=== PATIENT | male | born 1965 | race Two or more races ===

== ENCOUNTER 2018-07-07 16:43 | Emergency (ER) | payer MEDICAID, OTHER ==
[~2018-07-07] VITALS: Ht 160 cm; Wt 68.0 kg
[2018-07-07 16:50] VITALS: BP 174/72
[2018-07-07] MEDS ORDERED: methylPREDNISolone SOD SUCC 125 MG/2 ML VL IM ONE (19:15)
[2018-07-07] MEDS ORDERED: EPINEPHrine HCL 0.5 ML NEB NEB ONE (19:15)
[2018-07-07] MEDS ORDERED: cefTRIAXone SOD 1,000 MG VL IM ONE (19:15)
== END 2018-07-07 19:55 | disposition home or self-care (01) ==
LOC: ER 16:43
DX: J45.909 Unspecified asthma, uncomplicated (principal)
CPT/HCPCS: 94640; 96372; 99283; J0696; J2930

== ENCOUNTER 2018-12-04 16:34 | Emergency (ER) | payer OTHER ==
[~2018-12-04] VITALS: Ht 160 cm; Wt 63.5 kg
[~2018-12-04 16:34] MED LIST: ATO40T PO; CLOP75TA28 PO; LISI-275 PO; NITR0.4S29 SL
[2018-12-04 17:14] LABS: Basophils # (auto) 0.1 uL; Basophils % (auto) 0.7 % (0.0-2.0); Eosinophils # (auto) 0.3 uL; Eosinophils % (auto) 3.7 % (0.0-7.0); Hematocrit 44.3 % (41.0-53.0); Hemoglobin 14.5 g/dL (13.5-17.5); Lymphocytes # (auto) 2.3 uL; Lymphocytes % (auto) 32.6 % (10.0-50.0); Mean Corpuscular Hemoglobin 28.6 pg (28.0-32.0); Mean Corpuscular Hgb Conc. 32.7 g/dL (32.0-36.0); Mean Corpuscular Volume 87.6 fL (80.0-100.0); Monocytes # (auto) 0.6 uL; Monocytes % (auto) 8.5 % (0.0-12.0); Neutrophils # (auto) 3.9 uL; Neutrophils % (auto) 54.5 % (37.0-80.0); Nucleated Red Blood Cells % 0.2 %; Platelet Count (auto) 250 10^3/uL (140-450); Red Blood Cells 5.06 10^6/uL (4.5-5.90); Red Cell Distribution Width 13.7 % (11.8-14.3); White Blood Cell 7.1 10^3/uL (4.4-10.8)
[2018-12-04 17:22] LABS: Urine WBC None Seen /hpf (0 - 3)
[2018-12-04 17:26] LABS: Anion Gap 9 (5-15); BUN/Creatinine Ratio 10.8; Blood Urea Nitrogen 10 mg/dL (7-18); Calcium 8.9 mg/dL (8.5-10.1); Carbon Dioxide 22 mmol/L (21-32); Chloride 107 mmol/L (98-107); GFR African American 109 mL/min; GFR Non-African American 90 mL/min; Glucose 89 mg/dL (74-106); Magnesium 2.6 mg/dL (1.6-2.6); Potassium 3.5 mmol/L (3.5-5.1); Sodium 138 mmol/L (136-145)
[2018-12-04 17:31] LABS: Alanine Aminotransferase 28 U/L (16-61); Alkaline Phosphatase 84 U/L (45-117); Aspartate Aminotransferase 12 U/L (15-37); Bilirubin, Total 1.2 mg/dL (0.2-1.0); Total Protein 7.4 g/dL (6.4-8.2)
[2018-12-04 17:55] LABS: Urine Bacteria NONE SEEN /hpf (None Seen); Urine Blood Negative /uL (Negative); Urine Specific Gravity 1.005 (1.001-1.035)
[2018-12-04 19:06] LABS: Alcohol, Urine < 3.0 mg/dL (0-5); Barbiturate Scree,Urine NEGATIVE (NEGATIVE); Benzodiazephine Screen, Urine NEGATIVE (NEGATIVE); Cannabinoid Screen, Urine POSITIVE (NEGATIVE); Cocaine Screen, Urine NEGATIVE (NEGATIVE); Opiate Scree,Urine NEGATIVE (NEGATIVE); Phencyclidine Screen, Urine NEGATIVE (NEGATIVE)
[2018-12-04 19:13] LABS: Amphetamine Screen, Urine NEGATIVE (NEGATIVE)
[2018-12-04 21:09] LABS: Amylase 51 U/L (25-115); Lipase 113 U/L (73-393)
[2018-12-04] MEDS ORDERED: DIPHENOXYLATE W/ATROPINE 2.5 MG TAB PO ONE (21:30)
[2018-12-04 21:49] VITALS: BP 116/82
== END 2018-12-04 21:44 | disposition home or self-care (01) ==
LOC: ER 16:34
DX: K52.9 Noninfective gastroenteritis and colitis, unspecified (principal); K90.9 Intestinal malabsorption, unspecified; I10 Essential (primary) hypertension; E78.5 Hyperlipidemia, unspecified; J45.909 Unspecified asthma, uncomplicated; F12.10 Cannabis abuse, uncomplicated; Z86.73 Personal history of transient ischemic attack (TIA), and cerebral infarction without residual deficits; Z98.61 Coronary angioplasty status
CPT/HCPCS: 36415; 70450; 71045; 80053; 80307; 80320; 81001; 82150; 83690; 83735; 84484; 85025; 93005; 94761

== ENCOUNTER 2019-03-02 07:01 | Emergency (ER) | payer OTHER ==
[~2019-03-02] VITALS: Ht 160 cm; Wt 63.5 kg
[2019-03-02 07:23] VITALS: BP 130/87
[2019-03-02] MEDS ORDERED: cefTRIAXone SOD 1,000 MG VL IM ONE (09:15)
== END 2019-03-02 09:45 | disposition home or self-care (01) ==
LOC: EDBD 07:01 → ER 07:01
DX: J03.90 Acute tonsillitis, unspecified (principal); J06.9 Acute upper respiratory infection, unspecified; J45.909 Unspecified asthma, uncomplicated; K21.9 Gastro-esophageal reflux disease without esophagitis; E78.5 Hyperlipidemia, unspecified; I10 Essential (primary) hypertension; F12.10 Cannabis abuse, uncomplicated; Z98.61 Coronary angioplasty status; Z91.013 Allergy to seafood
CPT/HCPCS: 71046; 93005; 96372; 99283; J0696

== ENCOUNTER 2020-08-12 07:16 | Emergency (ER) | payer MEDICAID ==
[~2020-08-12] VITALS: Ht 160 cm; Wt 65.8 kg
[2020-08-12 08:18] LABS: Basophils # (auto) 0.1 10 ^3/uL (0-0.2); Basophils % (auto) 0.8 % (0.0-2.0); Eosinophils # (auto) 0.2 10 ^3/uL (0-0.8); Hematocrit 40.1 % (41.0-53.0); Hemoglobin 13.3 g/dL (13.5-17.5); Lymphocytes # (auto) 1.4 10 ^3/uL (0.4-5.4); Lymphocytes % (auto) 20.9 % (10.0-50.0); Mean Corpuscular Hemoglobin 29.2 pg (28.0-32.0); Mean Corpuscular Hgb Conc. 33.2 g/dL (32.0-36.0); Mean Corpuscular Volume 87.8 fL (80.0-100.0); Monocytes # (auto) 0.6 10 ^3/uL (0-1.3); Monocytes % (auto) 8.9 % (0.0-12.0); Neutrophils # (auto) 4.5 10 ^3/uL (1.6-8.6); Neutrophils % (auto) 66.4 % (37.0-80.0); Nucleated Red Blood Cells % 0.1 %; Platelet Count (auto) 204 10^3/uL (140-450); Red Blood Cells 4.57 10^6/uL (4.5-5.90); Red Cell Distribution Width 13.4 % (11.8-14.3); White Blood Cell 6.7 10^3/uL (4.4-10.8)
[2020-08-12 08:30] LABS: INR 1.08 (0.9-1.15); Partial Thromboplastin Time 25.5 sec (23.0-31.2)
[2020-08-12 08:35] LABS: Alanine Aminotransferase 22 U/L (16-61); Albumin 3.5 g/dL (3.4-5.0); Anion Gap 4 (5-15); Aspartate Aminotransferase 12 U/L (15-37); BUN/Creatinine Ratio 9.1; Blood Urea Nitrogen 8 mg/dL (7-18); Calcium 8.3 mg/dL (8.5-10.1); Carbon Dioxide 25 mmol/L (21-32); Chloride 112 mmol/L (98-107); GFR African American 116 mL/min; GFR Non-African American 96 mL/min; Glucose 92 mg/dL (74-106); Magnesium 2.3 mg/dL (1.6-2.6); Potassium 4.1 mmol/L (3.5-5.1); Sodium 141 mmol/L (136-145)
[2020-08-12 08:39] LABS: Alkaline Phosphatase 83 U/L (45-117); Bilirubin, Total 0.5 mg/dL (0.2-1.0); Total Protein 6.9 g/dL (6.4-8.2)
[2020-08-12 09:26] VITALS: BP 152/86
== END 2020-08-12 10:07 | disposition home or self-care (01) ==
LOC: EDBD 07:16 → ER 07:16
DX: R07.89 Other chest pain (principal); F41.9 Anxiety disorder, unspecified; K21.9 Gastro-esophageal reflux disease without esophagitis; E78.5 Hyperlipidemia, unspecified; I10 Essential (primary) hypertension; Z79.899 Other long term (current) drug therapy; Z20.822 Contact with and (suspected) exposure to COVID-19
CPT/HCPCS: 36415; 71045; 80053; 83735; 84484; 85025; 85610; 85730; 87426; 93005; 99285; C9803; U0003

== ENCOUNTER 2020-10-13 12:07 | Emergency (ER) | payer MEDICAID ==
[~2020-10-13] VITALS: Ht 160 cm; Wt 63.5 kg
[2020-10-13] MEDS ORDERED: ONDANSETRON HCL 4 MG/2 ML VIAL IV ONE (12:15)
[2020-10-13] MEDS ORDERED: PANTOPRAZOLE 40 MG/10 ML VIAL INJ IV ONE (12:15)
[2020-10-13] MEDS ORDERED: SODIUM CHLORIDE 0.9% 1,000 ML IV ONE (12:15)
[2020-10-13 12:44] LABS: Basophils # (auto) 0.1 10 ^3/uL (0-0.2); Basophils % (auto) 0.7 % (0.0-2.0); Eosinophils # (auto) 0.2 10 ^3/uL (0-0.8); Eosinophils % (auto) 2.8 % (0.0-7.0); Hematocrit 42.1 % (41.0-53.0); Hemoglobin 13.9 g/dL (13.5-17.5); Lymphocytes # (auto) 1.9 10 ^3/uL (0.4-5.4); Lymphocytes % (auto) 25.2 % (10.0-50.0); Mean Corpuscular Hemoglobin 29.4 pg (28.0-32.0); Mean Corpuscular Hgb Conc. 33.1 g/dL (32.0-36.0); Mean Corpuscular Volume 88.8 fL (80.0-100.0); Monocytes # (auto) 0.5 10 ^3/uL (0-1.3); Monocytes % (auto) 7.2 % (0.0-12.0); Neutrophils # (auto) 4.8 10 ^3/uL (1.6-8.6); Neutrophils % (auto) 64.1 % (37.0-80.0); Nucleated Red Blood Cells % 0.1 %; Platelet Count (auto) 234 10^3/uL (140-450); Red Blood Cells 4.74 10^6/uL (4.5-5.90); White Blood Cell 7.5 10^3/uL (4.4-10.8)
[2020-10-13 12:52] VITALS: BP 145/75
[2020-10-13 12:59] LABS: Albumin 4.1 g/dL (3.4-5.0); Anion Gap 5 (5-15); Blood Urea Nitrogen 6 mg/dL (7-18); Calcium 8.8 mg/dL (8.5-10.1); Carbon Dioxide 26 mmol/L (21-32); Chloride 110 mmol/L (98-107); Glucose 99 mg/dL (74-106); Potassium 3.9 mmol/L (3.5-5.1); Sodium 141 mmol/L (136-145)
[2020-10-13 13:06] LABS: Alanine Aminotransferase 25 U/L (16-61); Alkaline Phosphatase 84 U/L (45-117); Aspartate Aminotransferase 17 U/L (15-37); BUN/Creatinine Ratio 7.1; Bilirubin, Total 0.7 mg/dL (0.2-1.0); GFR African American 120 mL/min; GFR Non-African American 99 mL/min; Total Protein 7.9 g/dL (6.4-8.2)
== END 2020-10-13 13:36 | disposition home or self-care (01) ==
LOC: ER 12:07
DX: R07.89 Other chest pain (principal); E78.5 Hyperlipidemia, unspecified; K21.9 Gastro-esophageal reflux disease without esophagitis; J45.909 Unspecified asthma, uncomplicated; I25.10 Atherosclerotic heart disease of native coronary artery without angina pectoris; Z98.890 Other specified postprocedural states; Z91.012 Allergy to eggs; Z79.899 Other long term (current) drug therapy
CPT/HCPCS: 36415; 71046; 80053; 84484; 85025; 93005; 96361; 96374; 96375; 99285; C9113; J2405

== ENCOUNTER 2020-12-02 14:45 | Emergency (ER) | payer MEDICAID ==
[~2020-12-02] VITALS: Ht 162.6 cm; Wt 63.5 kg
[2020-12-02 17:05] LABS: Urine Bacteria NONE SEEN /hpf (None Seen); Urine Blood Negative /uL (Negative); Urine Mucus FEW (None Seen); Urine Specific Gravity 1.023 (1.001-1.035); Urine WBC 1 /hpf (0 - 3)
[2020-12-02 18:43] VITALS: BP 148/84
== END 2020-12-02 18:46 | disposition home or self-care (01) ==
LOC: ER 14:45
DX: S09.90XA Unspecified injury of head, initial encounter (principal); R10.9 Unspecified abdominal pain; R42 Dizziness and giddiness; J45.909 Unspecified asthma, uncomplicated; I25.10 Atherosclerotic heart disease of native coronary artery without angina pectoris; K21.9 Gastro-esophageal reflux disease without esophagitis; E78.5 Hyperlipidemia, unspecified; Z79.01 Long term (current) use of anticoagulants; Z79.899 Other long term (current) drug therapy; Z91.013 Allergy to seafood; W22.8XXA Striking against or struck by other objects, initial encounter; Y93.89 Activity, other specified; Y92.89 Other specified places as the place of occurrence of the external cause; Y99.8 Other external cause status
CPT/HCPCS: 70450; 81001; 93005

== ENCOUNTER 2021-09-27 14:36 | Emergency (ER) | payer MEDICAID ==
[~2021-09-27] VITALS: Ht 160 cm; Wt 61.2 kg
[2021-09-27 14:36] VITALS: BP 129/87
== END 2021-09-27 19:55 | disposition left against medical advice (07) ==
LOC: ER 14:36
DX: J02.9 Acute pharyngitis, unspecified (principal); R07.0 Pain in throat; I25.10 Atherosclerotic heart disease of native coronary artery without angina pectoris; K21.9 Gastro-esophageal reflux disease without esophagitis; E78.5 Hyperlipidemia, unspecified; J45.909 Unspecified asthma, uncomplicated; Z79.01 Long term (current) use of anticoagulants; Z79.899 Other long term (current) drug therapy; Z91.013 Allergy to seafood

== ENCOUNTER 2022-03-20 19:37 | Emergency (ER) | payer MEDICAID ==
[~2022-03-20] VITALS: Ht 157.5 cm; Wt 70.0 kg
[2022-03-20] MEDS ORDERED: NITROGLYCERIN 2% OINT 1GM PKG TD ONE (20:00)
[2022-03-20 20:10] LABS: Basophils # (auto) 0.1 10 ^3/uL (0-0.2); Eosinophils # (auto) 0.4 10 ^3/uL (0-0.8); Eosinophils % (auto) 6.5 % (0.0-7.0); Hematocrit 40.8 % (41.0-53.0); Hemoglobin 13.2 g/dL (13.5-17.5); Lymphocytes # (auto) 1.8 10 ^3/uL (0.4-5.4); Lymphocytes % (auto) 28.6 % (10.0-50.0); Mean Corpuscular Hemoglobin 29.1 pg (28.0-32.0); Mean Corpuscular Hgb Conc. 32.4 g/dL (32.0-36.0); Mean Corpuscular Volume 89.8 fL (80.0-100.0); Monocytes # (auto) 0.7 10 ^3/uL (0-1.3); Neutrophils # (auto) 3.4 10 ^3/uL (1.6-8.6); Neutrophils % (auto) 52.9 % (37.0-80.0); Nucleated Red Blood Cells % 0.1 %; Red Blood Cells 4.54 10^6/uL (4.5-5.90); Red Cell Distribution Width 13.7 % (11.8-14.3); White Blood Cell 6.3 10^3/uL (4.4-10.8)
[2022-03-20 20:27] LABS: Albumin 3.7 g/dL (3.4-5.0); Calcium 8.3 mg/dL (8.5-10.1); Potassium 4.2 mmol/L (3.5-5.1)
[2022-03-20 20:36] LABS: Bilirubin, Total 0.3 mg/dL (0.2-1.0); Total Protein 6.9 g/dL (6.4-8.2)
[2022-03-20 20:59] LABS: Urine Bacteria NONE SEEN /hpf (None Seen); Urine Blood Negative /uL (Negative); Urine Specific Gravity 1.002 (1.001-1.035); Urine WBC <1 /hpf (0 - 3)
[2022-03-20] MEDS: ALBUTEROL SULF 2.5 MG/0.5ML(0.5%) NEB SOLN NEB PRN (21:45)
[2022-03-21 03:00] VITALS: BP 128/78
[2022-03-21] MEDS: ALBUTEROL SULF 2.5 MG/0.5ML(0.5%) NEB SOLN NEB PRN (03:15)
== END 2022-03-21 03:37 | disposition home or self-care (01) ==
LOC: ER 19:37 → EDBD 19:37 → ER 03-21 03:37
DX: R07.89 Other chest pain (principal); J45.909 Unspecified asthma, uncomplicated; K21.9 Gastro-esophageal reflux disease without esophagitis; E78.5 Hyperlipidemia, unspecified; F12.10 Cannabis abuse, uncomplicated
CPT/HCPCS: 36415; 71045; 80053; 81001; 83880; 84484; 85025; 93005; 94640

== ENCOUNTER 2022-06-29 17:46 | Emergency (ER) | payer MEDICAID ==
[~2022-06-29] VITALS: Ht 160 cm; Wt 59.0 kg
[2022-06-29 18:00] VITALS: BP 138/79
== END 2022-06-30 00:02 | disposition home or self-care (01) ==
LOC: ER 17:46
DX: S16.1XXA Strain of muscle, fascia and tendon at neck level, initial encounter (principal); S29.012A Strain of muscle and tendon of back wall of thorax, initial encounter; I25.10 Atherosclerotic heart disease of native coronary artery without angina pectoris; J45.909 Unspecified asthma, uncomplicated; K21.9 Gastro-esophageal reflux disease without esophagitis; E78.5 Hyperlipidemia, unspecified; Z79.01 Long term (current) use of anticoagulants; Z79.899 Other long term (current) drug therapy; Z91.013 Allergy to seafood; Y04.2XXA Assault by strike against or bumped into by another person, initial encounter; Y93.89 Activity, other specified; Y92.89 Other specified places as the place of occurrence of the external cause; Y99.8 Other external cause status

== ENCOUNTER 2024-07-23 12:14 | Emergency (ER) | payer MEDICAID ==
[~2024-07-23] VITALS: Ht 160 cm; Wt 66.7 kg
[~2024-07-23 12:14] MED LIST changes: -ATO40T PO; +ATOR-507 PO
--- NOTE | 2024-07-23 17:24 | DVH ---
Exam: US SOFT TISSUE NECK Clinical History: Mass Comparison: None Technique: Targeted sonographic evaluation of the soft tissues of the was obtained utilizing grayscale and col or Doppler imaging. Findings/Impression: There is a 2.8 x 1.2 x 2.5 cm hypoechoic structure seen in the area of the interest in the right temp oral region which is solid IMPRESSION: 1. Solid mass in the area of interest. Further evaluation with CT scanning recommended if clinically indicated
--- NOTE | 2024-07-23 18:00 | ED.PDOC ---
History of Present Illness(SKN HPI Comments 58 year old male presents for a mass located to the right temporal region. Developed years ago but noticed increase in size last 2 days. Associated with tenderness to touch. Never been seen for this. No other complaints. Denies discharge. Denies diplopia and vision changes. Denies fevers. Chief Complaint: Abscess Time Seen by MD: 13:47 Primary Care Provider: david History of Present Illness: Nurses Notes, Medications, Allergies Allergies: Coded Allergies: Fish Allergy (Verified Allergy, Unknown, 10/15/18) Home Meds Active Scripts Acetaminophen (Acetaminophen) 500 Mg Tab, 500 MG PO Q4HPRN, #30 TAB 0 Refills Prov:USMAN OATES 07/23/24 Sulfamethoxazole W/Trimethopri (Bactrim Ds Tablet) 1 Tab Tb, 1 TAB PO BID for 7 Days, #14 TAB 0 Refills Prov:USMAN OATES 07/23/24 Reported Medications Nitroglycerin (NTROSTAT SUBLINGUAL) 0.4 Mg Sl, 0.4 MG SL PRN PRN for prn *MAY REPEAT EVERY 5 MINUTES X 3 TOTAL IF NO RELIEF, INITIATE ANALGESIC THERAPY. NOTIFY PHYSICIAN *Do not crush. 10/15/18 Lisinopril (Lisinopril) 5 Mg Tab, 5 MG PO DAILY for 30 Days, MG 10/15/18 Clopidogrel Bisulfate (Plavix) 75 Mg Tab, 75 MG PO DAILY, TAB 10/15/18 Atorvastatin Calcium (Lipitor) 40 Mg Tab, 1 TAB PO DAILY, #30 TAB 5 Refills 10/15/18 Information Source: Patient Mode of Arrival: Ambulatory Past Medical History PAST MEDICAL HISTORY: Asthma, CAD, Cancer, GERD, High Lipids Surgical History: PTCA Family History Family History: Family hx of DM, Family hx of heart domen[place], Family hx of HTN Family History (Other): Anxiety Social History Smoker: Other Alcohol: Rarely Drugs: Marijuana Lives In: Home All Other Systems: Reviewed and Negative (Per HPI) Physical Exam General Appearance: No Apparent Distress, Normal HEENT: Head (See image for note), Normal ENT Inspection, Pharynx Normal, TMs Normal Neck: Full Range of Motion, Non-Tender, Normal, Normal Inspection Respiratory: Chest Non-Tender, Lungs Clear, No Accessory Muscle Use, No Respiratory Distress, Normal Breath Sounds Cardiovascular: No Edema, No JVD, No Murmur, No Gallop, Normal Peripheral Pulses, Regular Rate/Rhythm Breast Exam: Deferred Gastrointestinal: No Organomegaly, Non Tender, No Pulsatile Mass, Normal Bowel Sounds, Soft Genitalia: Deferred Pelvic: Deferred Rectal: Deferred Extremities: No calf tenderness, Normal capillary refill, Normal inspection, Normal range of motion, Non-tender, No pedal edema Musculoskeletal : Apperance: Normal Neurologic: Alert, sales development specialist II-XII nml as Tested, No Motor Deficits, Normal Affect, Normal Mood, No Sensory Deficits Cerebellar Function: Normal Reflexes: Normal Skin: Dry, Normal Color, Warm Lymphatic: No Adenopathy Was a procedure done? Was a procedure done?: Yes Sedation Sedation?: No Incision and Drainage Incision and Drainage: Abscess Location right temporal region Anesthetic: Lidocaine Preparation: Betadine, Saline Incision and Wound: Pus Informed consent obtained: Yes Risks/benefits/alt described: Yes Images 1 - 2 cm fluctuant mass. mild surrounding erythema. non ttp. mild white foul dischare during palpation consitent with abscess Differential Diagnosis (INTG) Differential Diagnosis: Hematoma, Other (mass) Abscess: Abscess, Cellulitis X-Ray, Labs, Meds, VS Vital Signs Date Time Temp Pulse Resp B/P (MAP) Pulse Ox O2 Delivery O2 Flow Rate FiO2 07/23/24 19:09 98.1 92 18 136/74 (94) 97 98.1 07/23/24 16:15 97.8 96 18 132/70 (90) 98 97.8 07/23/24 16:15 96 18 98 Room Air 07/23/24 12:25 97.7 99 17 131/76 (94) 96 Lab Test 07/23/24 18:08 Range/Units White Blood Count 8.7 4.4-10.8 10^3/uL Red Blood Count 4.98 4.5-5.90 10^6/uL Hemoglobin 14.6 13.5-17.5 g/dL Hematocrit 44.8 41.0-53.0 % Mean Corpuscular Volume 90.0 80.0-100.0 fL Mean Corpuscular Hemoglobin 29.4 28.0-32.0 pg Mean Corpuscular Hemoglobin Concent 32.6 32.0-36.0 g/dL Red Cell Distribution Width 14.3 11.8-14.3 % Platelet Count 250 140-450 10^3/uL Mean Platelet Volume 10.2 6.9-10.8 fL Neutrophils (%) (Auto) 69.6 37.0-80.0 % Lymphocytes (%) (Auto) 16.2 10.0-50.0 % Monocytes (%) (Auto) 9.5 0.0-12.0 % Eosinophils (%) (Auto) 4.2 0.0-7.0 % Basophils (%) (Auto) 0.5 0.0-2.0 % Neutrophils # (Auto) 6.1 1.6-8.6 10 ^3/uL Lymphocytes # (Auto) 1.4 0.4-5.4 10 ^3/uL Monocytes # (Auto) 0.8 0-1.3 10 ^3/uL Eosinophils # (Auto) 0.4 0-0.8 10 ^3/uL Basophils # (Auto) 0 0-0.2 10 ^3/uL Nucleated Red Blood Cells 0.1 % Sodium Level 139 136-145 mmol/L Potassium Level 3.9 3.5-5.1 mmol/L Chloride Level 108 H 98-107 mmol/L Carbon Dioxide Level 23 20-31 mmol/L Anion Gap 8 5-15 Blood Urea Nitrogen 6 L 9-23 mg/dL Creatinine 0.86 0.700-1.30 mg/dL Glomerular Filtration Rate Calc 100 >90 mL/min BUN/Creatinine Ratio 7.0 L 10.0-20.0 Serum Glucose 99 74-106 mg/dL Calcium Level 10.0 8.7-10.4 mg/dL Current Medications Medications (Trade) Dose Ordered Sig/Dilip Route Start Time Stop Time Status Last Admin Ceftriaxone Sodium 50 ml @ 100 mls/hr ONCE ONCE IV 07/23/24 20:15 07/23/24 20:44 DC 07/23/24 20:18 PATIENT: IAN FINK: [id number]: [id number] : 1965 LOC: ER ROOM / BED: / AGE / SEX: 58 / M ADM STATUS: REG ER SERVICE [id number] ORDERING PHYSICIAN: KENDALL ROBERTS NP PROCEDURE(s): STNUS - SOFT TISSUE NECK REASON: ORDER NUMBER(s): [id number], ACCESSION NUMBER(s): [id number] Exam: US SOFT TISSUE NECK Clinical History: Mass Comparison: None Technique: Targeted sonographic evaluation of the soft tissues of the was obtained utilizing grayscale and color Doppler imaging. Findings/Impression: There is a 2.8 x 1.2 x 2.5 cm hypoechoic structure seen in the area of the interest in the right temporal region which is solid IMPRESSION: 1. Solid mass in the area of interest. Further evaluation with CT scanning recommended if clinically indicated ATED BY: SHANIKA MARQUEZ MD DICTATED DATE/TIME: 07/23/241721 SIGNED BY: SHANIKA MARQUEZ MD SIGNED DATE/TIME: 07/23/241721 CC: [place] [id number] Ph: [phone] DIAGNOSTIC IMAGING Diagnostic Imaging Report : [id number] Signed PATIENT: BRANDON FINK ACCT: [id number] UNIT: [id number] : 1965 LOC: ER ROOM / BED: / AGE / SEX: 58 / M ADM STATUS: REG ER SERVICE 33 ORDERING PHYSICIAN: KENDALL ROBERTS NP PROCEDURE(s): HDWCT - HEAD CONTRAST ONLY REASON: Head mass to right temporal region ORDER NUMBER(s): [id number], ACCESSION NUMBER(s): [id number] EXAM: CT HEAD CONTRAST ONLY HISTORY: Head mass to right temporal region COMPARISON: HEAD WITHOUT CONTRAST on DOS: 12/02/20 TECHNIQUE: Axial images were obtained after uneventful administration of intravenous contrast and reformatted in coronal and sagittal planes. All CT scans at this medical facility are performed using dose modulation techniques as appropriate to a performed exam including the following: Automated exposure control was utilized; adjustment of the MA and/or KV according to patient size; and use of iterative reconstruction technique. CT Dose: CTDI volume is 53.37 mGy. Dose-length product is 855.56 mGy*cm FINDINGS: Supratentorial Region: No evidence for large acute territorial ischemia. No intracranial hemorrhage is noted. Posterior Fossa: No acute abnormality. Brainstem: Unremarkable. Sellar/Suprasellar Region: Unremarkable. Ventricles, Cisterns, Sulci: Age-appropriate. Orbits: Unremarkable. Paranasal Sinuses: Moderate paranasal sinus mucosal thickening and small amount of fluid in the bilateral maxillary and right frontal sinuses. Mastoid Air Cells: Unremarkable. Vasculature: Unremarkable. Bones/Soft Tissues: A 2 x 2 cm thick-walled cystic lesion in the right temporal scalp noted that appears confined to the subcutaneous tissues and dermis. The calvarium is intact. Other: None. IMPRESSION: 1. A 2 cm thick-walled cystic right temporal scalp lesion that may represent a complicated sebaceous cyst, abscess or other etiologies. Suggest further evaluation with aspiration culture cytology. 2. Moderate acute sinusitis. 3. No acute intracranial process. X-Ray, Labs, Meds, VS Comment 58 year old male presents for a mass located to the right temporal region. After ROS and physical examination and based on show decision-making, patient agreed to incision and drainage. Verbal informed consent was obtained from the patient. I discussed the indications, benefits, alternatives and complications to performing an incision and drainage. The patient understands the risks include, but are not limited to scarring, underlying structure injury, bleeding, nerve injury, new infection, and resultant disability. The skin overlying the abscess was prepared with Betadine The skin surrounding the abscess was locally anesthetized using 1% Lidocaine An incision using a number 11 blade scalpel was made overlying the abscess. The incision was 0.5 cm long. Minimal discharge and improvement noted. The patient did not appear to suffer any complications as a result of the procedure. US was then ordered and results showed Solid mass in the area of interest. Further evaluation with CT scanning recommended if clinically indicated Labs and Head CT w/ contrast ordered. Pending results at this time. Will endorse patient to [facility] provider Usman Oates for continuity of care. PATIENT: BRANDON FINK ACCT: [id number] UNIT: [id number] : 1965 LOC: ER ROOM / BED: / AGE / SEX: 58 / M ADM STATUS: REG ER SERVICE [id number] ORDERING PHYSICIAN: KENDALL ROBERTS NP PROCEDURE(s): HDWCT - HEAD CONTRAST ONLY REASON: Head mass to right temporal region ORDER NUMBER(s): [id number], ACCESSION NUMBER(s): [id number] EXAM: CT HEAD CONTRAST ONLY HISTORY: Head mass to right temporal region COMPARISON: HEAD WITHOUT CONTRAST on DOS: 12/02/20 TECHNIQUE: Axial images were obtained after uneventful administration of intravenous contrast and reformatted in coronal and sagittal planes. All CT scans at this medical facility are performed using dose modulation techniques as appropriate to a performed exam including the following: Automated exposure control was utilized; adjustment of the MA and/or KV according to patient size; and use of iterative reconstruction technique. CT Dose: CTDI volume is 53.37 mGy. Dose-length product is 855.56 mGy*cm FINDINGS: Supratentorial Region: No evidence for large acute territorial ischemia. No intracranial hemorrhage is noted. Posterior Fossa: No acute abnormality. Brainstem: Unremarkable. Sellar/Suprasellar Region: Unremarkable. Ventricles, Cisterns, Sulci: Age-appropriate. Orbits: Unremarkable. Paranasal Sinuses: Moderate paranasal sinus mucosal thickening and small amount of fluid in the bilateral maxillary and right frontal sinuses. Mastoid Air Cells: Unremarkable. Vasculature: Unremarkable. Bones/Soft Tissues: A 2 x 2 cm thick-walled cystic lesion in the right temporal scalp noted that appears confined to the subcutaneous tissues and dermis. The calvarium is intact. Other: None. IMPRESSION: 1. A 2 cm thick-walled cystic right temporal scalp lesion that may represent a complicated sebaceous cyst, abscess or other etiologies. Suggest further evaluation with aspiration culture cytology. 2. Moderate acute sinusitis. 3. No acute intracranial process. ATED BY: YOKO MARIE MD DICTATED DATE/TIME: 07/23/242003 SIGNED BY: YOKO MARIE MD SIGNED DATE/TIME: 07/23/242003 CC: Patient endorsed to me at shift change CBC reviewed-unremarkable BMP reviewed-without any significant abnormalities CT head with IV contrast reviewed Rocephin 1 g IM ordered Patient provided copy of CT head imaging report Patient has a palpable 2 cm cyst noted to right temporal region on my examination without bleeding/drainage/fluctuance Advised to follow up with PCP and structural metal fabricator apprentice in 1-2 days Patient verbalized understanding and agreeable with current plan of care Advised to return to ER immediately if symptoms worsen Images Reviewed?: Images reviewed and evaluated by me Time of 1ST Reevaluation: 17:54 Reevaluation 1ST: Improved Patient Education/Counseling: Diagnosis, Treatment Family Education/Counseling: Diagnosis, Treatment Departure 1 Departure Time of Disposition: 20:10 Impression: Primary Impression: Sebaceous cyst Disposition: 01 HOME / SELF CARE / HOMELESS Condition: Stable e-Prescriptions Acetaminophen (Acetaminophen) 500 Mg Tab 500 MG PO Q4HPRN, #30 TAB 0 Refills Prov: USMAN OATES 07/23/24 Sulfamethoxazole W/Trimethopri (Bactrim Ds Tablet) 1 Tab Tb 1 TAB PO BID for 7 Days, #14 TAB 0 Refills Prov: USMAN OATES 07/23/24 Discharged With: Self Critical Care Note Critical Care Time?: No Stability Stability form required: No Heart Score Heart Score: Heart Score Response (Comments) Value History N/A 0 EKG N/A 0 Age N/A 0 Risk Factors N/A 0 Troponin N/A 0 Total 0 KENDALL ROBERTS NP Jul 23, 2024 18:00 USMAN OATES Jul 23, 2024 20:13
[2024-07-23 18:59] LABS: Potassium 3.9 mmol/L (3.5-5.1); Sodium 139 mmol/L (136-145)
[2024-07-23 19:00] LABS: Anion Gap 8 (5-15); Carbon Dioxide 23 mmol/L (20-31)
[2024-07-23 19:05] LABS: Glucose 99 mg/dL (74-106)
[2024-07-23 19:09] VITALS: BP 136/74; PULSE 92; RESP 18; TEMP 98.1; O2SAT 97
[2024-07-23 19:19] LABS: Blood Urea Nitrogen 6 mg/dL (9-23); Chloride 108 mmol/L (98-107)
[2024-07-23 19:22] LABS: Basophils # (auto) 0 10 ^3/uL (0-0.2); Basophils % (auto) 0.5 % (0.0-2.0); Eosinophils # (auto) 0.4 10 ^3/uL (0-0.8); Eosinophils % (auto) 4.2 % (0.0-7.0); Hematocrit 44.8 % (41.0-53.0); Hemoglobin 14.6 g/dL (13.5-17.5); Lymphocytes # (auto) 1.4 10 ^3/uL (0.4-5.4); Lymphocytes % (auto) 16.2 % (10.0-50.0); Mean Corpuscular Hemoglobin 29.4 pg (28.0-32.0); Mean Corpuscular Hgb Conc. 32.6 g/dL (32.0-36.0); Monocytes # (auto) 0.8 10 ^3/uL (0-1.3); Monocytes % (auto) 9.5 % (0.0-12.0); Neutrophils # (auto) 6.1 10 ^3/uL (1.6-8.6); Neutrophils % (auto) 69.6 % (37.0-80.0); Nucleated Red Blood Cells % 0.1 %; Platelet Count (auto) 250 10^3/uL (140-450); Red Blood Cells 4.98 10^6/uL (4.5-5.90); Red Cell Distribution Width 14.3 % (11.8-14.3); White Blood Cell 8.7 10^3/uL (4.4-10.8)
[2024-07-23] MEDS ORDERED: IOHEXOL 300 MG/ML 100ML BOTTLE IJ ONE (19:34)
--- NOTE | 2024-07-23 20:07 | DVH ---
EXAM: CT HEAD CONTRAST ONLY HISTORY: Head mass to right temporal region COMPARISON: HEAD WITHOUT CONTRAST on DOS: 12/02/20 TECHNIQUE: Axial images were obtained after uneventful administration of intravenous contrast and ref ormatted in coronal and sagittal planes. All CT scans at this medical facility are performed using dose modulation techniques as appropriate t o a performed exam including the following: Automated exposure control was utilized; adjustment of th e MA and/or KV according to patient size; and use of iterative reconstruction technique. CT Dose: CTDI volume is 53.37 mGy. Dose-length product is 855.56 mGy*cm FINDINGS: Supratentorial Region: No evidence for large acute territorial ischemia. No intracranial hemorrhage is noted. Posterior Fossa: No acute abnormality. Brainstem: Unremarkable. Sellar/Suprasellar Region: Unremarkable. Ventricles, Cisterns, Sulci: Age-appropriate. Orbits: Unremarkable. Paranasal Sinuses: Moderate paranasal sinus mucosal thickening and small amount of fluid in the bila teral maxillary and right frontal sinuses. Mastoid Air Cells: Unremarkable. Vasculature: Unremarkable. Bones/Soft Tissues: A 2 x 2 cm thick-walled cystic lesion in the right temporal scalp noted that italo ears confined to the subcutaneous tissues and dermis. The calvarium is intact. Other: None. IMPRESSION: 1. A 2 cm thick-walled cystic right temporal scalp lesion that may represent a complicated sebaceous cyst, abscess or other etiologies. Suggest further evaluation with aspiration culture cytology. 2. Moderate acute sinusitis. 3. No acute intracranial process.
[2024-07-23] MEDS ORDERED: ACET500T58 PO (20:13)
[2024-07-23] MEDS ORDERED: BACDST PO (20:13)
[2024-07-23] MEDS: cefTRIAXone 1GM/50ML D5W 50 ML IV ONE (20:18)
== END 2024-07-23 21:13 | disposition home or self-care (01) ==
LOC: ER 12:14
DX: L72.3 Sebaceous cyst (principal); J45.909 Unspecified asthma, uncomplicated; K21.9 Gastro-esophageal reflux disease without esophagitis; E78.5 Hyperlipidemia, unspecified; F12.90 Cannabis use, unspecified, uncomplicated; Z98.890 Other specified postprocedural states; Z79.899 Other long term (current) drug therapy; Z88.8 Allergy status to other drugs, medicaments and biological substances
CPT/HCPCS: 10060; 36415; 70460; 76536; 80048; 85025; 96365; 99285; J0696; Q9967

== ENCOUNTER 2024-09-05 08:23 | Emergency (ER) | payer MEDICAID ==
[~2024-09-05] VITALS: Ht 160 cm; Wt 64.0 kg
[~2024-09-05 08:23] MED LIST changes: +ACET500T58 PO; +BACDST PO
[2024-09-05 08:38] VITALS: PULSE 55; RESP 16; O2SAT 95
[2024-09-05 09:11] LABS: Basophils # (auto) 0.1 10 ^3/uL (0-0.2); Basophils % (auto) 0.8 % (0.0-2.0); Eosinophils # (auto) 0 10 ^3/uL (0-0.8); Eosinophils % (auto) 0.5 % (0.0-7.0); Hematocrit 40.3 % (41.0-53.0); Hemoglobin 13.6 g/dL (13.5-17.5); Lymphocytes # (auto) 0.9 10 ^3/uL (0.4-5.4); Lymphocytes % (auto) 10.3 % (10.0-50.0); Mean Corpuscular Hemoglobin 30.5 pg (28.0-32.0); Mean Corpuscular Hgb Conc. 33.7 g/dL (32.0-36.0); Mean Corpuscular Volume 90.6 fL (80.0-100.0); Monocytes # (auto) 0.7 10 ^3/uL (0-1.3); Monocytes % (auto) 7.6 % (0.0-12.0); Neutrophils # (auto) 7.4 10 ^3/uL (1.6-8.6); Neutrophils % (auto) 80.8 % (37.0-80.0); Platelet Count (auto) 224 10^3/uL (140-450); Red Blood Cells 4.45 10^6/uL (4.5-5.90); Red Cell Distribution Width 14.4 % (11.8-14.3); White Blood Cell 9.1 10^3/uL (4.4-10.8)
[2024-09-05 09:12] LABS: Potassium 4.4 mmol/L (3.5-5.1); Sodium 140 mmol/L (136-145)
[2024-09-05 09:13] LABS: Anion Gap 6 (5-15); Calcium 9.7 mg/dL (8.7-10.4); Carbon Dioxide 24 mmol/L (20-31)
[2024-09-05 09:16] LABS: Chloride 110 mmol/L (98-107)
[2024-09-05 09:18] LABS: BUN/Creatinine Ratio 9.1 (10.0-20.0)
[2024-09-05 09:20] LABS: Blood Urea Nitrogen 7 mg/dL (9-23); Glucose 106 mg/dL (74-106)
--- NOTE | 2024-09-05 09:28 | ED.PDOC ---
HPI Comments 59Y M with PMHx HTN and HLD presents to ED via EMS with chief complaint high blood pressure since this morning. Pt states he has not picked up his HTN medication from the pharmacy for a long time and has been taking his friends medication. Pt was unable to provide the names of the medication. Pt stated he used cocaine last night. Pt denies chest pain, SOB, headache, fever, chills, and n/v/d. No other symptoms/history reported. Chief Complaint: Chest Pain Time Seen by MD: 08:50 Primary Care Provider: LAILA Reviewed Notes: Nurses Notes, Panelbeater Notes, Medications, Allergies Allergies: Coded Allergies: Fish Allergy (Verified Allergy, Unknown, 10/15/18) Home Meds Active Scripts Acetaminophen (Acetaminophen) 500 Mg Tab, 500 MG PO Q4HPRN, #30 TAB 0 Refills Prov:USMAN OATES 07/23/24 Sulfamethoxazole W/Trimethopri (Bactrim Ds Tablet) 1 Tab Tb, 1 TAB PO BID for 7 Days, #14 TAB 0 Refills Prov:USMAN OATES 07/23/24 Reported Medications Nitroglycerin (NTROSTAT SUBLINGUAL) 0.4 Mg Sl, 0.4 MG SL PRN PRN for prn *MAY REPEAT EVERY 5 MINUTES X 3 TOTAL IF NO RELIEF, INITIATE ANALGESIC THERAPY. NOTIFY PHYSICIAN *Do not crush. 10/15/18 Lisinopril (Lisinopril) 5 Mg Tab, 5 MG PO DAILY for 30 Days, MG 10/15/18 Clopidogrel Bisulfate (Plavix) 75 Mg Tab, 75 MG PO DAILY, TAB 10/15/18 Atorvastatin Calcium (Lipitor) 40 Mg Tab, 1 TAB PO DAILY, #30 TAB 5 Refills 10/15/18 Information Source: Patient, Emergency Med Personnel Mode of Arrival: EMS Brought in by: EMS Severity: Mild Timing: Hours Duration: Since onset Prehospital treatment: 12 Lead EKG Cardiac Risk Factors: Hyperlipidemia, HTN, Drugs PE Risk Factors: None History of: None Modifying Factors: Nothing Associated Signs and Symptoms: None Past Medical History PAST MEDICAL HISTORY: Asthma, CAD, Cancer, GERD, High Lipids, HTN Surgical History: PTCA Family History Family History: Family hx of DM, Family hx of heart domenico, Family hx of HTN Family History (Other): Anxiety Social History Smoker: Other Alcohol: Rarely Drugs: Cocaine, Marijuana Lives In: Home Constitutional: denies: chills, diaphoresis, fatigue, fever, malaise, sweats, weakness, others EENTM: denies: blurred vision, double vision, ear bleeding, ear discharge, ear drainage, ear pain, ear ringing, eye pain, eye redness, hearing loss, mouth pain, mouth swelling, nasal discharge, nose bleeding, nose congestion, nose pain, photophobia, tearing, throat pain, throat swelling, voice changes, others Respiratory: denies: cough, hemoptysis, orthopnea, SOB at rest, shortness of breath, SOB with excertion, stridor, wheezing, others Cardiovascular: denies: chest pain, dizzy spells, diaphoresis, Dyspnea on exertion, edema, irregular heart beat, left arm pain, lightheadedness, palpitations, PND, syncope, others Gastrointestinal: denies: abdomen distended, abdominal pain, blood streaked bowels, constipated, diarrhea, dysphagia, difficulty swallowing, hematemesis, melena, nausea, poor appetite, poor fluid intake, rectal bleeding, rectal pain, vomiting, others Genitourinary: denies: burning, dysuria, flank pain, frequency, hematuria, incontinence, penile discharge, penile sore, pain, testicle pain, testicle swelling, urgency, others Neurological: denies: dizziness, fainting, headache, left sided numbness, left sided weakness, numbness, paresthesia, pre-existing deficit, right sided numbness, right sided weakness, seizure, speech problems, tingling, tremors, weakness, others Musculoskeletal: denies: back pain, gout, joint pain, joint swelling, muscle pain, muscle stiffness, neck pain, others Integumetry: denies: bruises, change in color, change in hair/nails, dryness, laceration, lesions, lumps, rash, wounds, others Allergic/Immunocompromised: denies: Difficulty Healing, Frequent Infections, Hives, Itching, others Hematologic/Lymphatic: denies: anemia, blood clots, easy bleeding, easy bruising, swollen glands, others Endocrine: denies: excessive hunger, excessive sweating, excessive thirst, excessive urination, flushing, intolerance to cold, intolerance to heat, unexplained weight gain, unexplained weight loss, others Psychiatric: denies: anxiety, bipolar disorder, depression, hopeless, panic disorder, schizophrenia, sleepless, suicidal, others All Other Systems: Reviewed and Negative Physical Exam General Appearance: No Apparent Distress, Normal HEENT: Normal ENT Inspection, Pharynx Normal, TMs Normal Neck: Full Range of Motion, Non-Tender, Normal, Normal Inspection Respiratory: Chest Non-Tender, Lungs Clear, No Accessory Muscle Use, No Respiratory Distress, Normal Breath Sounds Cardiovascular: No Edema, No JVD, No Murmur, No Gallop, Normal Peripheral Pulses, Regular Rate/Rhythm Breast Exam: Deferred Gastrointestinal: No Organomegaly, Non Tender, No Pulsatile Mass, Normal Bowel Sounds, Soft Genitalia: Deferred Pelvic: Deferred Rectal: Deferred Extremities: No calf tenderness, Normal capillary refill, Normal inspection, Normal range of motion, Non-tender, No pedal edema Musculoskeletal : Apperance: Normal Neurologic: Alert, 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 Was a procedure done?: No CP Differential Dx Differential Diagnosis: Electrolyte Disorder, Heart Failure X-Ray, Labs, Meds, VS Vital Signs Date Time Temp Pulse Resp B/P (MAP) Pulse Ox O2 Delivery O2 Flow Rate FiO2 09/05/24 09:23 58 09/05/24 08:38 55 16 95 Room Air* 0 21 09/05/24 08:38 98.3 55 16 108/68 (81) 95 98.3 09/05/24 08:26 53 09/05/24 08:23 97.9 60 15 117/75 (89) 99 97.9 Lab Test 09/05/24 09:51 09/05/24 08:39 Range/Units Troponin I High Sensitivity 7 7 </=54 ng/L White Blood Count 9.1 4.4-10.8 10^3/uL Red Blood Count 4.45 L 4.5-5.90 10^6/uL Hemoglobin 13.6 13.5-17.5 g/dL Hematocrit 40.3 L 41.0-53.0 % Mean Corpuscular Volume 90.6 80.0-100.0 fL Mean Corpuscular Hemoglobin 30.5 28.0-32.0 pg Mean Corpuscular Hemoglobin Concent 33.7 32.0-36.0 g/dL Red Cell Distribution Width 14.4 H 11.8-14.3 % Platelet Count 224 140-450 10^3/uL Mean Platelet Volume 9.1 6.9-10.8 fL Neutrophils (%) (Auto) 80.8 H 37.0-80.0 % Lymphocytes (%) (Auto) 10.3 10.0-50.0 % Monocytes (%) (Auto) 7.6 0.0-12.0 % Eosinophils (%) (Auto) 0.5 0.0-7.0 % Basophils (%) (Auto) 0.8 0.0-2.0 % Neutrophils # (Auto) 7.4 1.6-8.6 10 ^3/uL Lymphocytes # (Auto) 0.9 0.4-5.4 10 ^3/uL Monocytes # (Auto) 0.7 0-1.3 10 ^3/uL Eosinophils # (Auto) 0 0-0.8 10 ^3/uL Basophils # (Auto) 0.1 0-0.2 10 ^3/uL Nucleated Red Blood Cells 0.0 % Sodium Level 140 136-145 mmol/L Potassium Level 4.4 3.5-5.1 mmol/L Chloride Level 110 H 98-107 mmol/L Carbon Dioxide Level 24 20-31 mmol/L Anion Gap 6 5-15 Blood Urea Nitrogen 7 L 9-23 mg/dL Creatinine 0.77 0.700-1.30 mg/dL Glomerular Filtration Rate Calc 103 >90 mL/min BUN/Creatinine Ratio 9.1 L 10.0-20.0 Serum Glucose 106 74-106 mg/dL Calcium Level 9.7 8.7-10.4 mg/dL [place] [id number] Ph: [phone] DIAGNOSTIC IMAGING Diagnostic Imaging Report : [id number] Signed PATIENT: BRANDON FINK ACCT: [id number] UNIT: [id number] : 1965 LOC: ER ROOM / BED: / AGE / SEX: 59 / M ADM STATUS: REG ER SERVICE [id number] ORDERING PHYSICIAN: DK IGNACIO MD PROCEDURE(s): CXRP - CHEST PORTABLE REASON: chest pain ORDER NUMBER(s): [id number], ACCESSION NUMBER(s): [id number] EXAM: XY CHEST PORTABLE Indication: chest pain Technique: Single frontal view of the chest was obtained Comparison: CHEST PORTABLE on DOS: 03/20/22, EKG on DOS: 03/20/22, CXRP on DOS: 03/20/22, EKG on DOS: 03/20/22, EKG on DOS: 03/20/22 FINDINGS: Lines and Tubes: None Lungs: No focal consolidation. Pleura: No effusion. No pneumothorax. Cardiomediastinal contours: Unremarkable. Sternotomy wires are visualized. Bones: No acute osseous abnormality. IMPRESSION: No acute cardiopulmonary disease. ATED BY: JUS MORRIS MD DICTATED DATE/TIME: 09/05/24928 SIGNED BY: JUS MORRIS MD SIGNED DATE/TIME: 09/05/24928 CC: Time of 1ST Reevaluation: 09:20 Reevaluation 1ST: Unchanged Patient Education/Counseling: Diagnosis, Treatment Family Education/Counseling: No Family Present Departure 1 Departure Time of Disposition: 11:30 (Patient presented with chest pain that was concerning for possible STEMI, ACS, PE, Pneumonia, Muscle Strain, COPD, Dissection. Data: 1. I ordered and reviewed the result of at least 3 labs including a CBC, BMP, and Troponin. 2. I independently interpreted the following tests: EKG which shows normal sinus rhythm and Chest X-ray which shows a benign chest.Risk:This patient presented with a high risk of morbidity due to further diagnostic testing or treatment and may suffer from an acute cardiac or respiratory disorder. After review of all the data patient is unlikely to have a pe , dissection, and is low risk for acs. Patient is stable at this time.Workup so far is benign and patient will be discharged with outpatient followup. ) Impression: Primary Impression: Acute chest pain Additional Impression: Polysubstance abuse Disposition: HOME / SELF CARE / HOMELESS Condition: Stable Additional Instructions: You presented today with chest pain. Your workup today was benign including labs, troponin, EKG, chest x-ray. Your pain may be from musculoskeletal strain, acid reflux, anxiety, or many other factors. It is important to follow up with your regular doctor within 1 week. If your symptoms worsen or you have any other concerns please return to the emergency room. Discharged With: Self Critical Care Note Critical Care Time?: No Stability Stability form required: No Heart Score Heart Score: Heart Score Response (Comments) Value History Slightly Suspicious 0 EKG Normal 0 Age 45-64 1 Risk Factors >3 or Hx ASHD 2 Troponin Normal limit 0 Total 3 I personally scribed for DK IGNACIO MD ([facility]) on 09/05/24 at 09:27. Electronically submitted by Chio Ballard ([employer]). I personally scribed for DK IGNACIO MD ([facility]) on 09/05/24 at 09:34. Electronically submitted by Chio Ballard ([employer]). DK IGNACIO MD Sep 05, 2024 09:27
--- NOTE | 2024-09-05 09:31 | DVH ---
EXAM: XY CHEST PORTABLE Indication: chest pain Technique: Single frontal view of the chest was obtained Comparison: CHEST PORTABLE on DOS: 03/20/22, EKG on DOS: 03/20/22, CXRP on DOS: 03/20/22, EKG on DOS: 03/20/22, EKG on DOS: 03/20/22 FINDINGS: Lines and Tubes: None Lungs: No focal consolidation. Pleura: No effusion. No pneumothorax. Cardiomediastinal contours: Unremarkable. Sternotomy wires are visualized. Bones: No acute osseous abnormality. IMPRESSION: No acute cardiopulmonary disease.
[2024-09-05 11:49] VITALS: BP 146/61; PULSE 59; RESP 20; TEMP 97.8; O2SAT 98
--- NOTE | 2024-09-05 19:02 | ECG ---
[facility] Test Date: 2024-09-05 Test Time: 08:26:38 Pat Name: BRANDON FINK Department: ED Room: Gender: M Supervising Deputy: ann : 1965 Requested By: DK IGNACIO Order Number: [id number] Reading MD: Joseluis Levy Measurements Intervals [place] Rate: 53 P: -40 [place]: 140 QRS: 63 QRSD: 104 T: 63 QT: 456 QTc: 429 Interpretive Statements Sinus rhythm Electronically Signed On 09-05-2024 22:15:31 PDT by Joseluis Levy Please click the below link to view image of tracing.
--- NOTE | 2024-09-05 19:02 | ECG ---
[facility] Test Date: 2024-09-05 Test Time: 09:23:35 Pat Name: BRANDON FINK Department: ED Room: Gender: M Desktop Engineer: ann : 1965 Requested By: DK IGNACIO Order Number: [id number] Reading MD: Joseluis Levy Measurements Intervals [place] Rate: 58 P: 62 [place]: 145 QRS: 86 QRSD: 96 T: 50 QT: 442 QTc: 435 Interpretive Statements Sinus rhythm Electronically Signed On 09-05-2024 22:15:37 PDT by Joseluis Levy Please click the below link to view image of tracing.
== END 2024-09-05 11:54 | disposition home or self-care (01) ==
LOC: EDBD 08:23 → ER 08:23
DX: R07.89 Other chest pain (principal); F19.10 Other psychoactive substance abuse, uncomplicated; I10 Essential (primary) hypertension; E78.5 Hyperlipidemia, unspecified; F17.200 Nicotine dependence, unspecified, uncomplicated; I25.10 Atherosclerotic heart disease of native coronary artery without angina pectoris; J44.89 Other specified chronic obstructive pulmonary disease; K21.9 Gastro-esophageal reflux disease without esophagitis; Z79.899 Other long term (current) drug therapy; Z91.013 Allergy to seafood
CPT/HCPCS: 36415; 71045; 80048; 84484; 85025; 93005